=== PATIENT | female | born 1970 | race Caucasian/White ===

== ENCOUNTER 2017-01-21 08:44 | Day surgery (SDC) | payer OTHER ==
[2017-01-21 09:08] VITALS: BMI 43.9
[2017-01-21] MEDS ORDERED: MIDAZOLAM HCL 2 MG/2 ML SINGLE DOSE VIAL ONE ×2 (10:57→11:50)
[2017-01-21] MEDS ORDERED: BUPIVACAINE HCL/PF 2.5 MG/ML - 30 ML VIAL IJ ONE (11:23)
[2017-01-21] MEDS ORDERED: EPINEPHrine 1:1,000 1 MG/1 ML - 30ML VIAL (INJECTION) ONE (11:23)
[2017-01-21] MEDS ORDERED: ceFAZolin SODIUM 1 GM VIAL ONE (12:15)
[2017-01-21] MEDS ORDERED: methylPREDNISolone ACET (DEPO) 40 MG/1 ML VIAL ONE (12:17)
[2017-01-21] MEDS ORDERED: ONDANSETRON 4 MG/2 ML VIAL ONE (12:22)
[2017-01-21] MEDS ORDERED: DEXAMETHASONE SOD PHOSPHATE 4 MG/1 ML VIAL ONE (12:22)
[2017-01-21] MEDS ORDERED: PROPOFOL 20 ML ONE (12:24)
[2017-01-21] MEDS ORDERED: ONDANSETRON 4 MG/2 ML VIAL IVPUSH PRN (13:44)
[2017-01-21] MEDS ORDERED: LACTATED RINGERS SOLUTION 1,000 ML IV SCH (13:45)
--- NOTE | 2017-01-21 13:46 | OP ---
Operative Note - Note: Operative Date: 01/21/17 Pre-Operative Diagnosis: Right knee partial medial meniscus. Right knee DJD Operation: 1. Surgical arthroscopy right knee. 2. Partial medial meniscectomy right knee. 3. Cauterization bleeding ACL vessels. Right thigh tourniquet: 250mmHg x 37 min Findings: 1. Partial medial meniscus tear 2. Medial femoral condyle chondromalacia (Grade 2) 3. Degenerative, friable ACL Post-Operative Diagnosis: Same as Pre-op Surgeon: Ruperto Don Anesthesiologist/YARN MERCERIZER OPERATOR HELPER: Jeanine Clifford Anesthesia: General, Spinal Fluid Volume Replaced (mls): 1,000 Operative Report Dictated: Yes
[2017-01-21] MEDS: oxyCODONE HCL 5 MG TABLET PO PRN ×2 (15:10→15:45)
[2017-01-21 15:16] VITALS: TEMP 97.5
[2017-01-21 16:51] VITALS: BP 100/50; PULSE 61
[2017-01-21] MEDS ORDERED: PATIENT'S OWN MEDICATION (NON-FORMULARY) (Omeprazole [Omeprazole] 10 MG) PO SCH (22:00)
[2017-01-22] MEDS ORDERED: ESCITALOPRAM OXALATE 10 MG TABLET (FP) PO SCH (10:00)
--- NOTE | 2017-01-24 00:06 | OP ---
DATE OF OPERATION: 01/21/2017 SURGEON: Ruperto Don M.D. MULLING MACHINE OPERATOR: None. PREOPERATIVE DIAGNOSIS: 1. Right knee medial meniscus tear. 2. Right knee degenerative joint disease. POSTOPERATIVE DIAGNOSIS: Right knee: 1. Partial medial meniscus tear. 2. Large Trochlear sulcus cartilage fissure. 3. Medial femoral condyle chondromalacia grade 2. 4. Degenerative anterior cruciate ligament. SURGICAL PROCEDURE: 1. Surgical arthroscopy right knee. 2. Partial medial meniscectomy right knee. 3. Cauterization bleeding anterior cruciate ligament vessel. ANESTHESIA: General. POSITION: Supine. INCISION: Standard anteromedial, anterolateral arthroscopy portals. ESTIMATED BLOOD LOSS: Minimal. INTRAVENOUS FLUIDS: See anesthesia record. SPECIMENS: None. DRAINS: None. COMPLICATIONS: None. URINE OUTPUT: None. BACTERIOLOGY: None. TRANSFUSIONS: None. TOURNIQUET PRESSURE: 250 mmHg. TOURNIQUET TIME: 37 min. CLOSURE: 3-0 nylon. INDICATION: The patient is a 46-year-old female who was indicated for surgical arthroscopy of the right knee and debridement in order to improve motion and mobilization in order to prevent the complications associated with a sedentary lifestyle. The patient was identified in the holding area by her armband. A long conversation was held with the patient regarding the risks, benefits, and alternatives to the above-named procedure. Risks include but are not limited to : pain, bleeding, infection, damage to surrounding structures (including nerves, blood vessels, skin, ligaments, tendons, and bone), wound complications, need for further surgery, blood clots, myocardial infarction, pulmonary embolism, anesthesia complications, compartment syndrome, limb loss, limp, loss of function, and . Benefits as mentioned above. Alternatives include no surgery. All questions answered. The patient understood and agreed to the procedure. Informed consent was obtained, witnessed and verified. The patient's correct operative limb - that is the right lower extremity - was marked. The patient was taken to the operating room after being seen by the anesthesia and nursing staff. PROCEDURE: The patient was brought into the operating room, placed on the OR table, and secured with safety strap. Consent and the operative site were again verified with the patient and nursing and anesthesia staff. Anesthesia was then administered without complication. This included the administration of IV antibiotics. A time-out was then done led by , the attending surgeon. The patient was positioned with all bony prominences well padded. A tourniquet was placed proximally on the right thigh and set to 250 mmHg. The right thigh was then secured in a leg piper. The operative site was then prepped and draped in the standard, sterile fashion. Timeout was again done. The limb was exsanguinated using an Esmarch, the tourniquet was inflated, and the case began. A standard anterolateral arthroscopy portal was made into the right knee, using an 11- blade. Next the arthroscope was delivered into the suprapatellar pouch via the anterolateral incision. The soft tissues of the knee were tight and this was more challenging than normal due to the increased tissue tension. There the knee was insufflated with normal saline solution containing epinephrine for hemostatis. The articular side of the patella was noted to be healthy, and no concerning chondromalacia was observed. The trochlear sulcus, however, contained a large, central fissure. Next the arthroscope was delivered into the medial gutter of the right knee, where no loose bodies were seen. Gentle valgus force was applied to the right knee to open up the medial joint space, allowing the arthroscope to fall into the medial joint space. There, an obvious tear of the posterior horn of the medial meniscus was observed. Grade 2 chondromalacia of the medial femoral condyle was also observed. Next an 18-gauge needle was used to triangulate the medial compartment of the right knee, and upon removal of the needle, an 11-blade was used to produce an standard anteromedial arthroscopy portal. Next, the trocar was used to enter the medial compartment of the right knee, and after removing the trocar the probe was introduced. The probe then demonstrated the instability of the meniscus tear, and a 3.5-mm shaver was then used via the anteromedial arthroscopy portal to debride the meniscus tear back to a stable peripheral rim. Next the arthroscope was taken to the middle of the knee, where the ACL was demonstrated to be degenerative. It was intact; however, it was friable in appearance. Numerous actively bleeding blood vessels were noted to be overlying the ACL. Electrocautery was then used to cauterize these vessels and minimize bleeding into the knee. Next gentle varus stress was applied to the right knee, and the arthroscope was delivered into the lateral compartment of the knee where no significant chondromalacia was noted and the lateral meniscus was observed to be completely intact. Following this, the arthroscope was delivered into the lateral gutter, where no loose bodies were seen, and once again up into the suprapatellar pouch where the knee was copiously irrigated with over 3 L of fluid. Next the inflow fluid was clamped, and outflow suction was used to fully aspirate the knee. Next a 5 mL injection consisting of 4 mL of 0.25% Marcaine and 1 mL of Depo-Medrol 40 mg/mL was injected into the medial compartment of the right knee. Hemostasis was assured. The incisions were then closed by primarily using 3-0 nylon suture in standard [id number] suture fashion. Sterile compressive dressing was applied. The tourniquet was then released at a final time of 37 minutes. The sponge and needle counts were correct at the end of the case, and I the attending surgeon, was present and scrubbed throughout the case. The patient was then extubated by the anesthesia staff without incident or complications and then transferred to the recovery room in stable condition having tolerated the procedure well. MD GABRIELLA Zaragoza/[id number] MTDD
--- NOTE | 2017-01-25 11:49 | PATH ---
Surgical Pathology Report Patient Name: HARMONY SCHWARTZ Med. Rec. #: [id number] /Age/Gender: 1970 (Age: 46) / F Account: [id number] Location: [facility] Taken: 01/24/2017 Received: 01/24/2017 Reported: 01/25/2017 Physicians: Ruperto Don M.D. Specimen(s) Received RIGHT KNEE SHAVINGS Clinical History Derangement of medial meniscus due to tear Final Diagnosis KNEE, RIGHT, ARTHROSCOPIC SHAVING: FIBROCARTILAGE WITH MYXOID DEGENERATIVE CHANGES, ALONG WITH PORTIONS OF SYNOVIUM. Electronically Signed Abdoulaye Jaeger M.D. Gross Description Received in formalin labeled "right knee shavings," is a 1.5 x 1.0 x 0.2 cm aggregate of shore-yellow soft tissue fragments. The formalin is filtered and the specimen is entirely submitted in one cassette. 01/24/201701/24/2017
== END 2017-01-21 16:20 | disposition home or self-care (01) ==
LOC: FASU 08:44
PROVIDERS: ATTEND Orthopaedic Surgery Adult Reconstructive Orthopaedic Surgery
PROC: 0Y3 Anatomical Regions, Lower Extremities, Control (ICD-10-PCS; 2017-01-21)
PROC: 0SBD4ZZ Excision of Left Knee Joint, Percutaneous Endoscopic Approach (ICD-10-PCS; principal; 2017-01-21 12:59)
DX: M23.203 Derangement of unspecified medial meniscus due to old tear or injury, right knee (principal); M94.261 Chondromalacia, right knee; S83.511A Sprain of anterior cruciate ligament of right knee, initial encounter; X58.XXXA Exposure to other specified factors, initial encounter; Y93.9 Activity, unspecified; Y92.9 Unspecified place or not applicable
CPT/HCPCS: 84703; 88304-TC; 94760; 97116-GP